=== PATIENT | male | born 1960 | race Caucasian/White ===

== ENCOUNTER 2025-01-04 06:20 | Day surgery (SDC) | payer MEDICARE, BC ==
[2024-12-30 10:16] LABS: BASOPHILS % (AUTO) 0.6 % (0-1); EOSINOPHILS # (AUTO) 0.1 X10'3 (0-0.9); LYMPHOCYTES # (AUTO) 1.5 X10'3 (1.1-4.8); LYMPHOCYTES % (AUTO) 24.7 % (21-51); MEAN CORPUSCULAR HEMOGLOBIN 31.3 PG (27.0-31.0); MEAN CORPUSCULAR VOLUME 92.2 FL (78-98); MEAN PLATELET VOLUME 8.4 FL (7.4-10.4); MONOCYTES # (AUTO) 0.6 X10'3 (0-0.9); MONOCYTES % (AUTO) 10.5 % (2-12); NEUTROPHILS # (AUTO) 3.8 X10'3 (1.8-7.7); NEUTROPHILS % (AUTO) 62.2 % (42-75); PRE OP HEMATOCRIT 47.8 % (42.0-52.0); PRE OP HEMOGLOBIN 16.2 g/dL (14.0-17.9); PRE OP PLATELET COUNT 164 X10'3 (140-440); PRE OP WHITE BLOOD COUNT 6.1 10'3 (4.8-10.8); RED BLOOD COUNT 5.18 X10'6 (4.70-6.10); RED CELL DISTRIBUTION WIDTH 12.7 % (11.5-14.5)
[2024-12-30 10:24] LABS: ALBUMIN 3.9 G/DL (3.4-5.0); ALKALINE PHOSPHATASE 72 IU/L (46-116); BLOOD UREA NITROGEN 18 MG/DL (7-18); BUN/CREATININE RATIO 21.4 (10.0-20.0); CREATININE 0.84 MG/DL (0.60-1.10); PRE OP ALT 51 U/L (30-65); PRE OP AST 18 U/L (10-37); PRE OP BILIRUB, TOTAL 0.6 MG/DL (0.0-1.0); PRE OP GLUCOSE 86 MG/DL (70-104); PRE OP POTASSIUM 4.6 MMOL/L (3.4-5.1); PRE OP SODIUM 140 MMOL/L (135-145); TOTAL CARBON DIOXIDE 34.4 MMOL/L (24-32); TOTAL PROTEIN 7.7 G/DL (6.4-8.2); eGFR > 90 ML/MIN
[2024-12-30 10:25] LABS: CHLORIDE 103 MMOL/L (99-107); PRE OP ANION GAP 3 (8-16)
[~2025-01-04] VITALS: Ht 175.3 cm; Wt 94.6 kg
[2025-01-04] MEDS: DOCUMENT DATE & TIME OF BETA-BLOCKER PO ONE (05:30)
[~2025-01-04 06:20] MED LIST: ATOR40TA PO; CARV25TA2 PO; LOSA100T58 PO; ROSU40TA89 PO; SPIR25TA5 PO
[2025-01-04 06:38] VITALS: BP 121/73; PULSE 63; RESP 16; TEMP 97.9; O2SAT 97
[2025-01-04] MEDS: famotidine 20mg tablet PO ONE (07:22)
[2025-01-04] MEDS: ringers solution, lacted 1,000 ML IV SCH (07:22)
[2025-01-04] MEDS ORDERED: LIDOcaine 2% (20mg/ml) 5ml vial ONE (08:26)
[2025-01-04] MEDS ORDERED: BUPIVAcaine/PF 2.5mg/ml (0.25%) 10ml vial ONE (08:26)
[2025-01-04] MEDS ORDERED: MIDAZolam 1 MG/ML 5ML VIAL ONE (08:40)
[2025-01-04] MEDS ORDERED: fentaNYL/PF 50MCG/1 ML 2ML syringe ONE (08:40)
[2025-01-04] MEDS ORDERED: propofol inj 20 ML IV ONE (08:44)
[2025-01-04] MEDS ORDERED: ceFAZolin 1000mg inj ONE (09:01)
[2025-01-04 09:04] VITALS: BP 109/53; PULSE 73; RESP 16; O2SAT 96
[2025-01-04 09:10] VITALS: BP 96/47; PULSE 69; RESP 20; O2SAT 91
[2025-01-04] MEDS: BUPIVAcaine/PF 2.5mg/ml (0.25%) 10ml vial IJ ONE (09:19)
[2025-01-04 09:20] VITALS: BP 97/56; PULSE 64; RESP 20; O2SAT 93
[2025-01-04 09:30] VITALS: BP 95/55; PULSE 65; RESP 20; O2SAT 93
== END 2025-01-04 09:44 | disposition home or self-care (01) ==
LOC: PAS 06:20
PROVIDERS: ATTEND Orthopaedic Surgery Hand Surgery
DX: G56.02 Carpal tunnel syndrome, left upper limb (principal); E78.5 Hyperlipidemia, unspecified; Z98.890 Other specified postprocedural states; M19.139 Post-traumatic osteoarthritis, unspecified wrist; Z79.82 Long term (current) use of aspirin; I25.10 Atherosclerotic heart disease of native coronary artery without angina pectoris; J44.9 Chronic obstructive pulmonary disease, unspecified; I42.0 Dilated cardiomyopathy; I11.0 Hypertensive heart disease with heart failure; I50.9 Heart failure, unspecified; E66.9 Obesity, unspecified; F41.9 Anxiety disorder, unspecified; Z82.49 Family history of ischemic heart disease and other diseases of the circulatory system; Z68.30 Body mass index [BMI] 30.0-30.9, adult; I27.20 Pulmonary hypertension, unspecified; Z88.8 Allergy status to other drugs, medicaments and biological substances
CPT/HCPCS: 29848; 36415; 80053; 82948; 85025; A4215; A6449; A7000; J0690; J2003; J2250; J2704; J3010; J3490; J7030; J7120; Z7506; Z7512; Z7610